=== PATIENT | female | born 1970 ===

== ENCOUNTER 2022-06-10 11:44 | Emergency (ER) | payer OTHER, SELFPAY ==
[2022-06-10 11:52] VITALS: BP 155/88; PULSE 64; RESP 20; TEMP 36.6; O2SAT 98
--- NOTE | 2022-06-10 12:35 | ED.GENADULT ---
HPI - General Adult General Chief complaint: Extremity Problem,Nontraumatic Stated complaint: Calves and feet swelling Source: patient, RN notes reviewed and old records reviewed Mode of arrival: ambulatory Limitations: no limitations History of Present Illness HPI narrative: Patient presents to express care accompanied by spouse with complaints of bilateral lower edema andworsening past few days leg with weeping noted today from left lower leg which is clear. Patient states that she has had bilateral leg swelling for several months but since Friday the pain and swelling have increased especially to her left leg. Patient reports that she has been taking Aleve and trying to keep legs elevated as much as possible. Patient reports that her left leg started to weep today with some redness tightness of left lower leg noted with patient reporting pain to calf area of left leg also. Patient states she called her doctor about her legs swelling and was told to go to urgent care. MD complaint: swelling of bilateral lower legs, Left> with weeping and calf pain Location: lower extremity Severity scale (1-10): 8 Exacerbating factors: movement and other (weight bearing) Treatments prior to arrival: NSAID and other (elevation) Related Data Home Medications Medication Instructions Recorded Confirmed cpedwuo-obwxowlqieqfq-[id number] 250 1 tablet PO Q4-6H PRN pain 06/10/22 06/10/22 mg-250 mg-65 mg tablet (Excedrin Extra Strength) biotin 10,000 mcg disintegrating 10,000 mcg PO DAILY 06/10/22 06/10/22 tablet carbamazepine 200 mg tablet mg 06/10/22 clonazepam 1 mg tablet mg 06/10/22 famotidine 20 mg tablet 20 mg PO BID 06/10/22 06/10/22 glipizide 5 mg tablet mg 06/10/22 hydroxyzine HCl 25 mg tablet mg 06/10/22 melatonin 10 mg sublingual tablet 10 mg sublingual HS 06/10/22 06/10/22 metformin 500 mg tablet,extended mg PO 06/10/22 release 24 hr naproxen sodium 220 mg tablet 220 mg PO Q12H PRN pain 06/10/22 06/10/22 (Aleve) omega 5-fht-ppv-fish oil 1,200 mg cap PO 06/10/22 (144 mg-216 mg) capsule (Fish Oil) pantoprazole 40 mg tablet,delayed mg PO 06/10/22 release propranolol 80 mg tablet mg 06/10/22 sumatriptan succinate 100 mg tablet mg PO 06/10/22 trazodone 50 mg tablet mg 06/10/22 venlafaxine 75 mg tablet mg 06/10/22 Allergies Allergy/AdvReac Type Severity Reaction Status Date / Time No Known Allergies Allergy Unverified 06/10/22 12:22 Review of Systems Review of Systems: CONSTITUTIONAL: Denies fever, chills, or sweats. EYES: Denies visual changes, redness, or discharge. ENT: Denies rhinorrhea, congestion, sore throat, or otalgia. CARDIOVASCULAR: Denies chest pain, palpitations, or edema. RESPIRATORY: Denies cough or acute dyspnea. GASTROINTESTINAL: Denies abdominal pain, nausea, vomiting, or diarrhea. GENITOURINARY: Denies dysuria or hematuria. SKIN: Denies rash or itching.clear weeping with some redness left lower leg with swelling and calf pain MUSCULOSKELETAL: Denies back pain, positive for lower extremity edema and pain especially left NEUROLOGIC: Denies headache, numbness, or weakness. PSYCHIATRIC: Positive for acute anxiety,PTSD, or depression. All systems reviewed & are unremarkable except as noted in HPI and below PMFSH Past Medical History Medical History (Updated 06/11/22 @ 15:40 by Concepcion Rice NP) Anxiety Charcot foot due to diabetes mellitus Diabetes Foot ulcer, left Migraine PTSD (post-traumatic stress disorder) Social History Social History Smoking status: Never smoker Alcohol intake: unknown Substance use type: marijuana Last use: for anxiety Living arrangements: with family Gender identity (if verbalized by the patient): Female Comments At time of signature, agree with nursing past medical, surgical, social and family history. There is no relevant family history pertinent to the presenting complaint Exam [facility]
== END 2022-06-10 12:50 | disposition short-term general hospital (02) ==
PROVIDERS: Emergency Provider Registered Nurse; PCP Family Medicine
DX: R60.0 Localized edema (principal); L03.116 Cellulitis of left lower limb; L03.115 Cellulitis of right lower limb; M79.662 Pain in left lower leg; Z79.82 Long term (current) use of aspirin; E11.9 Type 2 diabetes mellitus without complications
CPT/HCPCS: 99202; G0463